=== PATIENT | male | born 1990 | race American Indian/Alaskan Native ===

== ENCOUNTER 2017-03-11 23:28 | Emergency (ER) | payer OTHER ==
[2017-03-11 23:33] VITALS: BP 130/48
--- NOTE | 2017-03-12 01:30 | XRay Report ---
FINAL REPORT EXAM: XR ANKLE 2V RT HISTORY: right ankle pain after injury COMPARISON: None available. FINDINGS: Two views the right ankle obtained. Tiny avulsive fracture fragment the inferior margin medial malleolus measuring 1 millimeter. There is an oblique nondisplaced fracture through the distal and posterior margin the tibia. No fibular fracture. IMPRESSION: Tiny avulsive fracture fragment at the inferior margin medial malleolus. Oblique lucency of the posterior distal margin the tibia concerning for nondisplaced fracture.
[2017-03-12] MEDS ORDERED: TORADOL IM ONE (01:34)
[2017-03-12] MEDS ORDERED: FLEXERIL PO ONE (01:34)
[2017-03-12] MEDS ORDERED: TORADOL ONE (01:45)
--- NOTE | 2017-03-12 01:46 | Emergency Department Report ---
HPI - General Chief Complaint: Extremity Injury, Lower Time Seen by Provider: 03/12/17 01:33 - HPI HPI: She was a 27-year-old male who presents to ED complaining of right ankle pain 2 days. She was supposed he was gio zone yesterday when he accidentally jumped down to zone area and hurt his ankle. Patient states he started experiencing throbbing/aching pain shortly after that. She sits and describes pain as throbbing, aching nature and localized to right ankle sometimes radiates to the knee. Patient states he was able to wrap his ankle with some Michael wrap that he had a home. Patient also states he was able to use his crutches. As applying pressure to the right foot causes pain He denies fever/chills/nausea/ Abdominal pain since chest pain/shortness ED Past Medical Hx - Past Medical History Previous Medical History?: No - Surgical History Past Surgical History?: No - Social History Smoking Status: Never Smoker - Medications Home Medications: Home Medications Medication Instructions Recorded Confirmed Last Taken Type Cyclobenzaprine [Flexeril 10 MG 10 mg PO QHS #20 tablet 03/12/17 Unknown Rx TAB] Ibuprofen [Motrin] 800 mg PO Q8HR PRN #30 tablet 03/12/17 Unknown Rx ED Review of Systems ROS: Stated complaint: FALL Other details as noted in HPI Constitutional: denies: chills, fever Eyes: denies: eye pain, eye discharge, vision change ENT: denies: ear pain, throat pain Respiratory: denies: cough, shortness of breath, wheezing Cardiovascular: denies: chest pain, palpitations Endocrine: no symptoms reported Gastrointestinal: denies: abdominal pain, nausea, diarrhea Genitourinary: denies: urgency, dysuria Musculoskeletal: denies: back pain, joint swelling, arthralgia Skin: denies: rash, lesions Neurological: denies: headache, weakness, paresthesias Psychiatric: denies: anxiety, depression Hematological/Lymphatic: denies: easy bleeding, easy bruising Physical Exam - Physical Exam Vital Signs: Vital Signs 03/11/17 03/12/17 23:29 00:56 Temperature 98.2 F 98.2 F Pulse Rate 74 63 Respiratory 18 18 Rate Blood Pressure 130/48 130/48 O2 Sat by Pulse 95 95 Oximetry Physical Exam: GENERAL: Alert and oriented x3, no apparent distress, Normal Gait, atraumatic. NECK: Supple. Non edematous, No lymphadenopathy or thyromegaly. No C-spine tenderness LUNGS: Symetrical with respiration, No wheezing, no rales or crackles, CTAB. HEART: S1, S2 present, regular rate and rhythm without murmur, no rubs, no gallops. Non tender to palpation ABDOMEN: No organomegaly was noted,Positive bowel sounds, soft, and non- distended. . Nontender to palpation on all Quadrants, NO CVA tenderness. BACK: Full range of motion, no spinal tenderness, nontender to palpation. EXTREMITIES/MUSCULOSKELETAL: No cyanosis, clubbing, rash, lesions or edema. Full ROM bilaterally. UE/LE Pulses 2+ bilaterally. Right lateral aspect of the ankle tender to palpation. Patient able to wiggle foot. Patient able to plantar flex foot without any problem. No swelling, no ecchymosis.. NEUROLOGIC: The patient is cooperative with no focal neurologic deficits. Normal speech. Normal sensation in bilateral upper and lower extremities, No loss of sensation, SKIN: Warm and dry, No lesions, No ulceration or induration present. ED Course Vital Signs 03/11/17 03/12/17 23:29 00:56 Temperature 98.2 F 98.2 F Pulse Rate 74 63 Respiratory 18 18 Rate Blood Pressure 130/48 130/48 O2 Sat by Pulse 95 95 Oximetry ED Medical Decision Making - Radiology Data Radiology results: report reviewed, image reviewed FINAL REPORT EXAM: XR ANKLE 2V RT HISTORY: right ankle pain after injury COMPARISON: None available. FINDINGS: Two views the right ankle obtained. Tiny avulsive fracture fragment the inferior margin medial malleolus measuring 1 millimeter. There is an oblique nondisplaced fracture through the distal and posterior margin the tibia. No fibular fracture. IMPRESSION: Tiny avulsive fracture fragment at the inferior margin medial malleolus. Oblique lucency of the posterior distal margin the tibia concerning for nondisplaced fracture. Transcribed By: LATOYA Dictated By: SABRINA CHILDERS MD Electronically Authenticated By: SABRINA CHILDERS MD Signed Date/Time: 03/11/172126 - Medical Decision Making 27-year-old male presents to ED with distal malleolus fracture ED course: Patient received paim meds in ED stay X-ray of the ankle taken, see report above I discussed x-ray findings with the patient. Patient was put in a posterior OCL splint and used his crutches Post-splint application: No neurovascular deficit. I discussed the patient and need to be put in the splint and follow-up with orthopedic doctor to manage fracture Vital signs are normal eyes, patient is in no acute distress Discussed with patient follow-up with primary care physician. Discussed the patient and take medications as prescribed. Patient has no neurological deficit. Patient is alert and oriented 3 and understands all instructions given. Discussed drowsiness effect of Flexeril makes her drowsy and not to operate machinery while taking flexeril Critical care attestation.: If time is entered above; I have spent that time in minutes in the direct care of this critically ill patient, excluding procedure time. ED Disposition Clinical Impression: Ankle fracture, lateral malleolus, closed Qualifiers: Encounter type: initial encounter Fracture alignment: nondisplaced Laterality: right Qualified Code(s): S82.64XA - Nondisplaced fracture of lateral malleolus of right fibula, initial encounter for closed fracture Disposition: - TO HOME OR SELFCARE Is pt being admited?: No Does the pt Need Aspirin: No Condition: Stable Instructions: Ankle Fracture (ED), Splint Care (ED) Additional Instructions: Make sure to follow up with the primary care physician as discussed. Take all your medications as you've been prescribed. If you have any worsening symptoms or develop new symptoms please return to ED immediately. Prescriptions: Cyclobenzaprine [Flexeril 10 MG TAB] 10 mg PO QHS #20 tablet Ibuprofen [Motrin] 800 mg PO Q8HR PRN #30 tablet PRN Reason: Pain Referrals: PRIMARY CAREMD [Primary Care Provider] - 3-5 Days RENE JESSICA MD [Staff Physician] - 3-5 Days [facility] [Outside] - 3-5 Days [facility] [Outside] - 3-5 Days Forms: Accompanied Note, Work/School Release Form(ED)
== END 2017-03-12 02:27 | disposition home or self-care (01) ==
LOC: ED 23:28
DX: S82.61XA Displaced fracture of lateral malleolus of right fibula, initial encounter for closed fracture (principal); X58.XXXA Exposure to other specified factors, initial encounter; Y93.39 Activity, other involving climbing, rappelling and jumping off; Y92.89 Other specified places as the place of occurrence of the external cause; Y99.8 Other external cause status
CPT/HCPCS: 29515; 73600; 96372; 99283; J1885